=== PATIENT | female | born 1995 | race Asian ===

== ENCOUNTER 2018-12-16 21:24 | Emergency (ER) | payer OTHER ==
[2018-12-16 21:42] VITALS: BP 146/81
--- NOTE | 2018-12-16 21:52 | UC ---
Abdominal Pain Female HPI - HPI Summary HPI Summary: 23-year-old female who has had mid abdominal pain for approximately 4 days and today it is more lower. She has chronic constipation states she had a small bowel movement approximately is ago. Tonight she has a fever. She denies any abnormal vaginal discharge. She states she was treated for urinary tract infection about 8 days ago and that has completely cleared. She is sexually active with one partner with the use of condoms. - History of Current Complaint Chief Complaint: UCAbdominalPain Stated Complaint: ABDOMINAL PAIN Time Seen by Provider: 12/16/18 21:29 Hx Obtained From: Patient Hx Last Menstrual Period: 11/13/18 ?: No Onset/Duration: Gradual Onset Timing: Constant Severity Initially: Mild Severity Currently: Moderate Pain Intensity: 6 Location: Diffuse, Other - She states the abdominal pain started mid abdomen but is now in the lower abdomen and a little more in the right lower quadrant. Radiates: No Character: Unable to describe Aggravating Factor(s): Nothing Alleviating Factor(s): Nothing Associated Signs and Symptoms: Negative: Vaginal Discharge, Vomiting, Diarrhea Allergies/Adverse Reactions: Allergies Allergy/AdvReac Type Severity Reaction Status Date / Time No Known Allergies Allergy Verified 12/16/18 22:21 PMH/Surg Hx/FS Hx/Imm Hx Previously Healthy: Yes - Surgical History Surgical History: None - Family History Known Family History: Positive: Non-Contributory - Social History Occupation: Student Alcohol Use: None Substance Use Type: None Smoking Status (MU): Never Smoked Tobacco Review of Systems All Other Systems Reviewed And Are Negative: Yes Constitutional: Positive: Fever Gastrointestinal: Positive: Abdominal Pain - Abdominal pain starting approximate 4 days ago which has worsened and is now in the lower abdomen. Genitourinary: Positive: Negative - She had a UTI approximate days ago for which she was treated and symptoms completely resolved. Is Patient Immunocompromised?: No Physical Exam Triage Information Reviewed: Yes Appearance: Well-Appearing, No Pain Distress, Well-Nourished Vital Signs: Initial Vital Signs Temp 100.3 F 12/16/18 21:31 Pulse 105 12/16/18 21:31 Resp 18 12/16/18 21:31 BP 146/81 12/16/18 21:31 Pulse Ox 100 12/16/18 21:31 Vital Signs Reviewed: Yes Eyes: Positive: Conjunctiva Clear ENT: Positive: Hearing grossly normal, Pharynx normal, TMs normal, Uvula midline Neck: Positive: Supple, Nontender, No Lymphadenopathy Respiratory: Positive: Lungs clear, Normal breath sounds, No respiratory distress, No accessory muscle use Cardiovascular: Positive: RRR, No Murmur, Pulses Normal, Brisk Capillary Refill Abdomen Description: Positive: No Organomegaly, Soft, Other: - Mildly tender over the right lower quadrant, no rigidity rebound or guarding.. Negative: CVA Tenderness (R), CVA Tenderness (L), Hepatomegaly, Splenomegaly Bowel Sounds: Positive: Present Musculoskeletal Exam: Normal Neurological Exam: Normal Psychological Exam: Normal Skin Exam: Normal Abd Pain Female Course/Dx - Course Course Of Treatment: Patient is comfortable here. She is febrile and with her having lower abdominal pain at with a little more in the right lower quadrant I feel she needs to be seen in the emergency room for further evaluation and treatment. At this point time we do not have CT capability nor are we able to do any lab work. Patient is agreeable to this plan of action and I advised her no eating or drinking until she is evaluated in the emergency room. - Differential Dx/Diagnosis Provider Diagnosis: Abdominal pain Discharge ED - Sign-Out/Discharge Documenting (check all that apply): Patient Departure All imaging exams completed and their final reports reviewed: No Studies - Discharge Plan Condition: Fair Disposition: HOME-RECOMMEND TO ED Referrals: No Primary Care Phys,NOPCP [Primary Care Provider] - Additional Instructions: After the evaluation by the nurse practitioner, it is recommended that you go to the emergency room for further evaluation of the abdominal pain where you should receive additional testing that can be completed in the emergency department. It is recommended that you go directly to the emergency department. This evaluation may include blood work or imaging. This testing will be directed and decided by the provider that evaluates you within the emergency department. If pain becomes worse, you feel lightheaded or you develop uncontrolled vomiting, or have any other concerns while you are driving to the emergency room, please pulley mortiser operator and call 911. - Billing Disposition and Condition Condition: FAIR Disposition: Home-Recommend to ED - Attestation Statements Provider Attestation: This patient was not seen by. I was available for consult. Chart reviewed. ORIANA
== END 2018-12-16 21:57 | disposition home health service (06) ==
LOC: UCEAST 21:24
DX: R10.31 Right lower quadrant pain (principal); K59.09 Other constipation
CPT/HCPCS: 99202; G0463

== ENCOUNTER 2018-12-16 22:13 | Emergency (ER) | payer OTHER ==
[2018-12-16] MEDS ORDERED: NS 0.9% 1000 ML** 1,000 ML IV ONE (22:47)
[2018-12-16] MEDS ORDERED: Acetaminophen TAB* 325 MG PO ONE (22:58)
--- NOTE | 2018-12-16 23:00 | ED ---
Abdominal Pain/Female - HPI Summary HPI Summary: Patient complains of mid abdominal pain 3 days. Pain is intermittent, worse with movement and after eating. Elevated 8/10 at worst. States history of same once every 3-4 months, but symptoms are worse this episode. Denies cough, sore throat, WANG, CP, SOB, N/V/D, change in urine, change in BM, vaginal symptoms. History of constipation, states baseline one bowel movement per week. Has not had bowel movement for 2 days. LMP is 1 day late. History of recent UTI treated with antibiotics with resolution of symptoms. Denies prior abdominal surgical history. - History of Current Complaint Chief Complaint: EDAbdPain Stated Complaint: ABDOMINAL PAIN PER PT Time Seen by Provider: 12/16/18 22:44 Hx Obtained From: Patient Hx Last Menstrual Period: 11/13/18 Onset/Duration: Gradual Onset, Lasting Days Timing: Intermittent Episode Lasting Severity Initially: Moderate Severity Currently: Moderate Pain Intensity: 7 Pain Scale Used: 0-10 Numeric Location: Epigastric, Umbilical Radiates: No Character: Sharp Aggravating Factor(s): Food, Movement Alleviating Factor(s): Position Associated Signs and Symptoms: Positive: Constipation Allergies/Adverse Reactions: Allergies Allergy/AdvReac Type Severity Reaction Status Date / Time No Known Allergies Allergy Verified 12/16/18 22:21 PMH/Surg Hx/FS Hx/Imm Hx Endocrine/Hematology History: Denies: Hx Anticoagulant Therapy Cardiovascular History: Denies: Hx Pacemaker/ICD History: Denies: Hx Dialysis Sensory History: Denies: Hx Eye Prosthesis Opthamlomology History: Denies: Hx Legally Blind EENT History: Denies: Hx Deafness Infectious Disease History: No Infectious Disease History: Denies: Traveled Outside the [place] in Last 30 Days - Family History Known Family History: Positive: Non-Contributory - Social History Alcohol Use: None Substance Use Type: Reports: None Smoking Status (MU): Never Smoked Tobacco Review of Systems Constitutional: Negative Eyes: Negative ENT: Negative Cardiovascular: Negative Respiratory: Negative Positive: Abdominal Pain Genitourinary: Negative Musculoskeletal: Negative Skin: Negative Neurological: Negative Psychological: Normal All Other Systems Reviewed And Are Negative: Yes Physical Exam - Summary Physical Exam Summary: Mildly tender and upper quadrants and umbilically. No lower quadrant tenderness. Triage Information Reviewed: Yes Vital Signs On Initial Exam: Initial Vitals Temp Pulse Resp BP Pulse Ox 101.3 F 105 16 119/78 100 12/16/18 22:17 12/16/18 22:17 12/16/18 22:17 12/16/18 22:17 12/16/18 22:17 Vital Signs Reviewed: Yes Appearance: Positive: Well-Appearing Skin: Positive: Warm Head/Face: Positive: Normal Head/Face Inspection Eyes: Positive: Normal Neck: Positive: Supple Respiratory/Lung Sounds: Positive: Clear to Auscultation Cardiovascular: Positive: Normal Abdomen Description: Positive: Other: Musculoskeletal: Positive: Normal Neurological: Positive: Normal Psychiatric: Positive: Normal AVPU Assessment: Alert - Edward Coma Scale Best Eye Response: 4 - Spontaneous Best Motor Response: 6 - Obeys Commands Best Verbal Response: 5 - Oriented Coma Scale Total: 15 Procedures - Sedation Patient Received Moderate/Deep Sedation with Procedure: No Diagnostics - Vital Signs Vital Signs Temp Pulse Resp BP Pulse Ox 12/16/18 22:17 101.3 F 105 16 119/78 100 - Laboratory Result Diagrams: 12/16/18 22:58 12/16/18 22:58 Lab Statement: Any lab studies that have been ordered have been reviewed, and results considered in the medical decision making process. Abdominal Pain Fem Course/Dx - Course Course Of Treatment: Patient complains of mid abdominal pain 3 days. Pain is intermittent, worse with movement and after eating. Elevated 8/10 at worst. States history of same once every 3-4 months, but symptoms are worse this episode. Denies cough, sore throat, WANG, CP, SOB, N/V/D, change in urine, change in BM, vaginal symptoms. History of constipation, states baseline one bowel movement per week. Has not had bowel movement for 2 days. LMP is 1 day late. History of recent UTI treated with antibiotics with resolution of symptoms. Denies prior abdominal surgical history. Febrile. Tachycardic. Resolved with antipyretics. Vital signs otherwise unremarkable. Labs unremarkable. Ultrasound gallbladder negative for cholecystitis. KUB positive for constipation. Patient opted this time to defer CT of abdomen and pelvis, will return for any worsening symptoms. - Diagnoses Provider Diagnoses: Constipation, Fever, Abdominal pain Discharge ED - Sign-Out/Discharge Documenting (check all that apply): Patient Departure - Discharge Plan Condition: Stable Disposition: HOME Prescriptions: Magnesium CITRATE* [Citrate of Magnesia*] 300 ml PO SEE INSTRUCTIONS PRN #1 [id number] PRN Reason: Constipation Patient Education Materials: Constipation (ED), Acute Abdominal Pain (ED) Referrals: No Primary Care Phys,NOPCP [Primary Care Provider] - Additional Instructions: Alternate ibuprofen 400 mg with ibuprofen 650 mg every 3 hours for pain and fever. Return to the ED for any worsening symptoms. - Billing Disposition and Condition Condition: STABLE Disposition: Home
[2018-12-16 23:09] LABS: ABS Eosinophils 0.1 10^3/ul (0-0.6); ABS Lymphocytes 1.3 10^3/ul (1.0-4.8); ABS Monocytes 0.5 10^3/ul (0-0.8); ABS Neutrophils 6.2 10^3/ul (1.5-7.7); Eosinophil % 1.8 %; Hematocrit 38 % (35-47); Hemoglobin 12.8 g/dL (12.0-16.0); Lymphocyte % 15.9 %; Mean Corpuscular HGB Conc 34 g/dL (31-36); Mean Corpuscular Hemoglobin 30 pg (27-31); Mean Corpuscular Volume 89 fL (80-97); Mean Platelet Volume 7.8 fL (7.4-10.4); Nucleated Red Blood Cells % 0.1; Platelet Count 233 10^3/uL (150-450); Red Blood Count 4.22 10^6 /uL (3.70-4.87); Red Cell Distribution Width 14 % (10-15); White Blood Count 8.2 10^3/uL (3.5-10.8)
[2018-12-16 23:24] LABS: ALT 15 U/L (7-52); AST 15 U/L (13-39); Albumin 3.9 g/dL (3.2-5.2); Albumin/Globulin Ratio 1.4 (1-3); Alkaline Phosphatase 48 U/L (34-104); Anion Gap 6 mmol/L (2-11); Blood Urea Nitrogen 11 mg/dL (6-24); C Reactive Protein 3.13 mg/L (<8.01); CO2 Carbon Dioxide 26 mmol/L (22-32); Calcium 9.2 mg/dL (8.6-10.3); Chloride 106 mmol/L (101-111); EGFR African American 157.3 (>60); Globulin 2.7 g/dL (2-4); Glucose 104 mg/dL (70-100); Potassium 4.1 mmol/L (3.5-5.0); Sodium 138 mmol/L (135-145); Total Protein 6.6 g/dL (6.4-8.9)
[2018-12-16 23:30] LABS: HCG Pregnancy < 0.60 mIU/mL
[2018-12-17 00:56] LABS: Urine Appearance Cloudy; Urine Bilirubin Negative (Negative); Urine Blood Negative (Negative); Urine Color Yellow; Urine Glucose Negative (Negative); Urine Ketones Negative (Negative); Urine Nitrite Negative (Negative); Urine Protein Negative (Negative); Urine Specific Gravity 1.021 (1.010-1.030); Urine Urobilinogen Negative (Negative)
[2018-12-17 02:17] VITALS: BP 116/78
== END 2018-12-17 02:10 | disposition home or self-care (01) ==
LOC: ED 22:13
DX: K59.00 Constipation, unspecified (principal); R50.9 Fever, unspecified; R10.9 Unspecified abdominal pain
CPT/HCPCS: 36415; 74018; 76705; 80053; 81003; 83690; 84702; 85025; 86140; 96360; 96361; 99283; A9270-GY